=== PATIENT | male | born 1960 | race Caucasian/White ===

== ENCOUNTER 2019-04-03 21:02 | Emergency (ER) | payer BC ==
--- NOTE | 2019-04-03 21:43 | EDM.PDOC ---
ED HPI GENERAL MEDICAL PROBLEM - General Chief Complaint: General Stated Complaint: FISH HOOK Time Seen by Provider: 04/03/19 21:30 Source of Information: Reports: Patient History Limitations: Reports: No Limitations - History of Present Illness INITIAL COMMENTS - FREE TEXT/NARRATIVE: 58 yo male here with a fish hook in his L thumb. Tetanus is UTD. Onset: Today Onset Date: 04/03/19 Onset Time: 20:20 Duration: Minutes:, Constant Location: Reports: Upper Extremity, Left Quality: Reports: Dull Severity: Mild Improves with: Reports: None Worsens with: Reports: Other (bumping hook) Context: Reports: Trauma Associated Symptoms: Reports: No Other Symptoms Treatments MEAT CARVER: Reports: Other (see below) (none) Left Finger-Thumb Pain Score (Numeric/FACES): 1 - Related Data Allergies Allergy/AdvReac Type Severity Reaction Status Date / Time No Known Allergies Allergy Verified 04/03/19 21:28 Home Meds: Home Meds NK [No Known Home Meds] 09/29/18 [History] Past Medical History HEENT History: Reports: Impaired Vision Respiratory History: Reports: Sleep Apnea Genitourinary History: Reports: BPH Musculoskeletal History: Reports: Fracture Other Musculoskeletal History: tail bone - Infectious Disease History Infectious Disease History: Reports: Chicken Pox, Hepatitis C Social & Family History - Tobacco Use Smoking Status *Q: Never Smoker - Caffeine Use Caffeine Use: Reports: None - Recreational Drug Use Recreational Drug Use: No ED ROS GENERAL - Review of Systems Review Of Systems: See Below Constitutional: Reports: No Symptoms Skin: Reports: Wound (puncture L thumb with hook still lodged.) Neurological: Reports: No Symptoms ED EXAM, GENERAL - Physical Exam Exam: See Below Exam Limited By: No Limitations General Appearance: Alert, WD/WN, No Apparent Distress Neurological: Alert, Oriented, CN II-XII Intact, Normal Cognition, No Motor/ Sensory Deficits Psychiatric: Normal Affect, Normal Mood Skin Exam: Warm, Dry, Normal Color, No Rash, Wound/Incision (puncture wound L thumb, single racheal hook imbedded. No active bleeding.) ED GENERAL MEDICAL PROCEDURES - Additional/Other Procedure(s) Other (Free Text) Procedure(s): Anesth locally with 1% lido. Betadine applied. Needle pushed through and removed. Nursing applied antibiotic ointment and bandage. Course - Vital Signs Last Recorded V/S: Last Vital Signs Temp 36.2 C 04/03/19 21:31 Pulse 49 L 04/03/19 21:31 Resp 16 04/03/19 21:31 BP 152/85 H 04/03/19 21:31 Pulse Ox 99 04/03/19 21:31 - Orders/Labs/Meds Orders: Active Orders 24 hr Category Date Time Status Bacitracin [Bacitracin Oint 1 GM] Med 04/03/19 22:01 Once 1 dose TOP ONETIME ONE Meds: Medications Discontinued Medications Generic Name Dose Route Start Last Admin Trade Name Pee PRN Reason Stop Dose Admin Lidocaine HCl 5 ml 04/03/19 21:38 04/03/19 21:44 Xylocaine-Mpf 1% INJECT 04/03/19 21:39 5 ml ONETIME ONE Administration Departure - Departure Time of Disposition: 22:02 Disposition: Home, Self-Care 01 Condition: Good Clinical Impression: Fish hook injury of finger Qualifiers: Encounter type: initial encounter Laterality: left Qualified Code(s): S69.92XA - Unspecified injury of left wrist, hand and finger(s), initial encounter - Discharge Information *PRESCRIPTION DRUG MONITORING PROGRAM REVIEWED*: No *COPY OF PRESCRIPTION DRUG MONITORING REPORT IN PATIENT MORGAN: No Referrals: PCP,None [Primary Care Provider] - Forms: ED Department Discharge Additional Instructions: Clean wound twice daily with soap and water. Dry. Apply antibiotic ointment and a new dressing. Recheck for signs of infection. - My Orders Last 24 Hours: My Active Orders 04/03/19 22:01 Bacitracin [Bacitracin Oint 1 GM] 1 dose TOP ONETIME ONE - Assessment/Plan Last 24 Hours: My Active Orders 04/03/19 22:01 Bacitracin [Bacitracin Oint 1 GM] 1 dose TOP ONETIME ONE
[2019-04-03] MEDS ORDERED: Bacitracin Oint 1 GM U/D Packet TOP ONE (22:01)
== END 2019-04-03 22:13 | disposition home or self-care (01) ==
LOC: JP.ED 21:02
DX: S60.352A Superficial foreign body of left thumb, initial encounter (principal); W45.8XXA Other foreign body or object entering through skin, initial encounter
CPT/HCPCS: 99283; J2001

== ENCOUNTER 2019-06-06 05:43 | Emergency (ER) | payer BC ==
[2019-06-06] MEDS ORDERED: Lactated Ringers 1,000 ML IV SCH (06:30)
--- NOTE | 2019-06-06 06:32 | EDM.PDOC ---
ED HPI GENERAL MEDICAL PROBLEM - General Chief Complaint: Gastrointestinal Problem Stated Complaint: ILL,SEVERE BODY ACHES Time Seen by Provider: 06/06/19 06:15 Source of Information: Reports: Patient, Family History Limitations: Reports: No Limitations - History of Present Illness INITIAL COMMENTS - FREE TEXT/NARRATIVE: 58-year-old male with stomach cramps, intermittent fevers, diarrhea for the past 4 days. He has not been traveling or exposed to other illness he knows of. He is usually healthy. Every time he eats or drinks anything he has watery diarrhea. No blood in the stool, he has persistent nausea but no vomiting. No recent antibiotics. This morning he felt like a truck ran him over, he was having shaking chills and finally felt he should be checked out. He had to trap puller on the road with diarrhea on the way in to the hospital. His has a bag of lettuce that she thinks is what made him sick. Onset: Gradual (Started fairly gradually 4 days ago) Duration: Day(s): (Over 4 days) Worsens with: Reports: Other (Anytime he eats or drinks it increases the diarrhea) Associated Symptoms: Reports: Fever/Chills, Malaise, Nausea/Vomiting, Weakness. Denies: Chest Pain, Cough, Shortness of Breath Generalized Pain Score (Numeric/FACES): 3 - Related Data Allergies Allergy/AdvReac Type Severity Reaction Status Date / Time No Known Allergies Allergy Verified 04/03/19 21:28 Home Meds: Home Meds Ascorbic Acid [Vitamin C] 1 tab PO DAILY 06/06/19 [History] Aspirin 1 tab PO DAILY 06/06/19 [History] Calcium Carbonate [Calci-Chew] 2 tab PO DAILY 06/06/19 [History] Glucosamine/D3/Boswellia Marian [Osteo Bi-Flex Caplet] 1 tab PO DAILY 06/06/19 [ History] Ibuprofen 1 tab PO TID PRN 06/06/19 [History] Krill/Foley-3/Dha/Epa/Lipids [Foley-3 Krill Oil 500 mg Sfgl] 1 tab PO DAILY 03/20 [History] Past Medical History HEENT History: Reports: Impaired Vision Respiratory History: Reports: Sleep Apnea Genitourinary History: Reports: BPH Musculoskeletal History: Reports: Fracture Other Musculoskeletal History: tail bone - Infectious Disease History Infectious Disease History: Reports: Chicken Pox - Past Surgical History Musculoskeletal Surgical History: Reports: Carpal Tunnel Social & Family History - Family History Family Medical History: Noncontributory - Tobacco Use Smoking Status *Q: Never Smoker - Caffeine Use Caffeine Use: Reports: None - Recreational Drug Use Recreational Drug Use: No ED ROS GENERAL - Review of Systems Review Of Systems: See Below Constitutional: Reports: Fever, Chills, Malaise, Decreased Appetite HEENT: Denies: Throat Pain Respiratory: Denies: Shortness of Breath, Cough Cardiovascular: Denies: Chest Pain GI/Abdominal: Reports: Abdominal Pain, Diarrhea, Nausea, Vomiting. Denies: Decreased Appetite, Hematemesis : Reports: No Symptoms Skin: Reports: No Symptoms Neurological: Reports: Weakness. Denies: Headache Psychiatric: Reports: No Symptoms ED EXAM, GI/ABD - Physical Exam Exam: See Below Exam Limited By: No Limitations General Appearance: Alert, No Apparent Distress Eyes: Bilateral: Normal Appearance (Good hydration, no jaundice) Throat/Mouth: Normal Inspection Head: Atraumatic Respiratory/Chest: No Respiratory Distress, Lungs Clear Cardiovascular: Regular Rate, Rhythm. No: Tachycardia Extremities: Normal Inspection. No: Pedal Edema Neurological: Alert, Oriented, No Motor/Sensory Deficits Psychiatric: Normal Affect, Normal Mood Skin Exam: Warm, Dry Course - Vital Signs Last Recorded V/S: Last Vital Signs Temp 97.4 F 06/06/19 06:02 Pulse 69 06/06/19 06:02 Resp 16 06/06/19 06:02 BP 107/76 06/06/19 06:02 Pulse Ox 98 06/06/19 06:02 - Orders/Labs/Meds Orders: Active Orders 24 hr Category Date Time Status CLOSTRIDIUM DIFFICILE BY PCR [RM] Stat Lab 06/06/19 07:38 Results CULTURE STOOL + SHIGATOX [RM] Stat Lab 06/06/19 07:38 Results Isolation [COMM] Stat Oth 06/06/19 06:26 Ordered Labs: Laboratory Tests 06/06/19 06/06/19 Range/Units 06:32 06:32 WBC 4.8 (4.5-11.0) K/uL RBC 4.98 (4.30-5.90) M/uL Hgb 14.5 (12.0-15.0) g/dL Hct 42.5 (40.0-54.0) % MCV 85 (80-98) fL MCH 29 (27-31) pg MCHC 34 (32-36) % Plt Count 196 (150-400) K/uL Neut % (Auto) 78 H (36-66) % Lymph % (Auto) 12 L (24-44) % [place] % (Auto) 8 H (2-6) % Eos % (Auto) 2 (2-4) % Baso % (Auto) 0 (0-1) % Sodium 140 (140-148) mmol/L Potassium 4.1 (3.6-5.2) mmol/L Chloride 106 (100-108) mmol/L Carbon Dioxide 25 (21-32) mmol/L Anion Gap 9.0 (5.0-14.0) mmol/L BUN 15 (7-18) mg/dL Creatinine 1.0 (0.8-1.3) mg/dL Est Cr Clr Drug Dosing 71.78 mL/min Estimated GFR (MDRD) > 60 (>60) Glucose 117 H (74-106) mg/dL Calcium 8.6 (8.5-10.1) mg/dL Total Bilirubin 0.8 (0.2-1.0) mg/dL AST 19 (15-37) U/L ALT 28 (12-78) U/L Alkaline Phosphatase 84 (46-116) U/L Total Protein 6.3 L (6.4-8.2) g/dL Albumin 3.2 L (3.4-5.0) g/dL Globulin 3.1 (2.3-3.5) g/dL Albumin/Globulin Ratio 1.0 L (1.2-2.2) Meds: Medications Discontinued Medications Generic Name Dose Route Start Last Admin Trade Name Freq PRN Reason Stop Dose Admin Lactated Ringer's 1,000 mls @ 1,000 mls/hr 06/06/19 06:30 06/06/19 06:32 Ringers, Lactated IV 1,000 mls/hr ASDIRECTED MIGUEL Administration Ketorolac Tromethamine 30 mg 06/06/19 07:21 06/06/19 07:29 Toradol IVPUSH 06/06/19 07:22 30 mg ONETIME ONE Administration - Re-Assessments/Exams Free Text/Narrative Re-Assessment/Exam: 06/06/19 06:31 CBC, CMP are obtained to check electrolytes, we will attempt to collect a stool sample for WBCs, culture and C. difficile. He'll be given 1 L of lactated Ringer 's while awaiting lab results. Care turned over to Dr. Lane. 06/06/19 07:58 CBC and CMP were reassuring but stool showed moderate WBCs. Culture of the stool as well as C. difficile is pending. Patient felt better after the fluids and Toradol, explaining that this may be a bacterial infection but with moderate WBCs in the stool likely viral and we should wait for culture but an antibiotic is also reasonable. He wanted to try the antibiotic (Cipro 500 twice daily). I'll call him with results in 2-3 days. Also recommended probiotics. Departure - Departure Time of Disposition: 08:07 Disposition: Home, Self-Care 01 Clinical Impression: Gastroenteritis - Discharge Information Instructions: Diarrhea, Adult, [id number] Referrals: PCP,None [Primary Care Provider] - Forms: ED Department Discharge Care Plan Goals: Probiotics recommended, rest, increased activity and diet as tolerated. Concentrate on fluids. Take antibiotic twice daily for the next 5 days. - My Orders Last 24 Hours: My Active Orders 06/06/19 06:26 Isolation [COMM] Stat 06/06/19 07:38 CLOSTRIDIUM DIFFICILE BY PCR [RM] Stat CULTURE STOOL + SHIGATOX [RM] Stat - Assessment/Plan Last 24 Hours: My Active Orders 06/06/19 06:26 Isolation [COMM] Stat 06/06/19 07:38 CLOSTRIDIUM DIFFICILE BY PCR [RM] Stat CULTURE STOOL + SHIGATOX [RM] Stat
[2019-06-06] MEDS ORDERED: Ketorolac 30 MG/ML SDV IVPUSH ONE (07:21)
== END 2019-06-06 08:07 | disposition home or self-care (01) ==
LOC: JP.ED 05:43
DX: K52.9 Noninfective gastroenteritis and colitis, unspecified (principal); Z79.82 Long term (current) use of aspirin; Z79.899 Other long term (current) drug therapy
CPT/HCPCS: 36415; 80053; 85025; 87046; 87493; 87899; 89055; 96361; 96374; 99283; J1885; J7120

== ENCOUNTER 2022-03-21 21:02 | Emergency (ER) | payer BC ==
[2022-03-21] MEDS ORDERED: Diphtheria,Pertussis(Acell),Tetanus Vaccine 0.5 ML Syringe IM ONE (21:57)
[2022-03-21] MEDS ORDERED: Lidocaine 1% 5 ML VIAL INJECT ONE (21:57)
[2022-03-21] MEDS ORDERED: Bacitracin Oint 1 GM U/D Packet TOP ONE (21:57)
== END 2022-03-21 23:23 | disposition home or self-care (01) ==
LOC: JP.ED 21:02
DX: S61.411A Laceration without foreign body of right hand, initial encounter (principal); Z87.891 Personal history of nicotine dependence; Z23 Encounter for immunization; Z79.899 Other long term (current) drug therapy; W26.8XXA Contact with other sharp object(s), not elsewhere classified, initial encounter
CPT/HCPCS: 12002; 90471; 90715; 99281; 99282-25

== ENCOUNTER 2023-02-26 06:44 | Emergency (ER) | payer BC | END 2023-02-26 08:42 | disposition home or self-care (01) | LOC: JP.ED 06:44 | DX: S63.92XA Sprain of unspecified part of left wrist and hand, initial encounter (principal); S60.222A Contusion of left hand, initial encounter; I10 Essential (primary) hypertension; Z88.8 Allergy status to other drugs, medicaments and biological substances; Z95.0 Presence of cardiac pacemaker; Z87.891 Personal history of nicotine dependence; Z79.82 Long term (current) use of aspirin; Z79.02 Long term (current) use of antithrombotics/antiplatelets; Z79.899 Other long term (current) drug therapy; X50.9XXA Other and unspecified overexertion or strenuous movements or postures, initial encounter | CPT/HCPCS: 73130-26-LT; 73130-LT; 99283 ==